=== PATIENT | female | born 1975 | race African-American/Black ===

== ENCOUNTER 2016-10-05 07:21 | Day surgery (SDC) | payer BC ==
[~2016-10-05] VITALS: Ht 165.1 cm; Wt 81.7 kg
[2016-10-05] VITALS (18 sets, daily range): BP systolic 95–124; BP diastolic 53–73; PULSE 58–84; RESP 16–18; Ht 165.1 cm; Wt 81.7 kg
[~2016-10-05 07:21] MED LIST: CEFAZOLIN 1 GM/50 ML (PMX) 50 ML IVPB SCH; CEPH-443 PO; LIDOCAINE 1% (MDV) 20 ML INJ ONE; SOD CHLORIDE 0.9% 1,000 ML IV SCH
[2016-10-05 09:21] LABS: ADD SCAN DIFF NO
[2016-10-05 09:23] LABS: BASOPHILS % 0.4 % (0.0-2.0); EOSINOPHILS % 0.8 % (0.0-7.0); HEMATOCRIT 35.8 % (37.0-47.0); HEMOGLOBIN 12.1 g/dl (12.0-16.0); LYMPHOCYTES # 2.1 10^3/ul (0.8-2.9); LYMPHOCYTES % 41.1 % (15.0-51.0); MEAN CORPUSCULAR HEMOGLOBIN 29.4 pg (29.0-33.0); MEAN CORPUSCULAR HGB CONC 33.8 g/dl (32.0-37.0); MEAN CORPUSCULAR VOLUME 86.9 fl (82.0-101.0); MEAN PLATELET VOLUME 9.5 fl (7.4-10.4); MONOCYTE # 0.5 10^3/ul (0.3-0.9); MONOCYTES % 9.6 % (0.0-11.0); NEUTROPHIL # 2.4 10^3/ul (1.6-7.5); NEUTROPHILS % 47.9 % (39.0-77.0); PLATELET COUNT 194 10^3/UL (140-415); RED BLOOD COUNT 4.12 10^6/ul (4.20-5.40)
[2016-10-05] MEDS ORDERED: PROPOFOL 100 ML ONE (09:29)
[2016-10-05] MEDS ORDERED: ROPIVACAINE 0.2% 20 ML VIAL ONE (09:29)
[2016-10-05] MEDS ORDERED: ROCURONIUM 50 MG INJ ONE (09:29)
[2016-10-05 09:36] LABS: ALBUMIN 4.6 g/dl (3.3-4.9); ALBUMIN/GLOBULIN RATIO 1.15; BILIRUBIN,INDIRECT 0.2 mg/dl (0-1.1); BILIRUBIN,TOTAL 0.2 mg/dl (0.2-1.3); TOTAL PROTEIN 8.6 g/dl (6.1-8.1)
[2016-10-05 09:37] LABS: CALCIUM 8.6 mg/dl (8.4-10.2); CREATININE 0.68 mg/dl (0.44-1.00); INR 1.12; POTASSIUM 3.9 mmol/L (3.5-5.1); PROTIME 14.4 Sec (12.2-14.2); PT RATIO 1.1
[2016-10-05 09:38] LABS: PARTIAL THROMBOPLASTIN TIME 32.6 Sec (25.0-35.0)
[2016-10-05] MEDS ORDERED: MIDAZOLAM 1 MG/ML 2 ML INJ ONE (09:42)
[2016-10-05] MEDS ORDERED: FENTAnyl 50 MCG/ML VIAL ONE (09:43)
[2016-10-05] MEDS ORDERED: FAMOTIDINE 20 MG INJ ONE (09:59)
[2016-10-05] MEDS ORDERED: ONDANSETRON 4 MG INJ ONE (09:59)
[2016-10-05] MEDS ORDERED: DEXAMETHASONE 4 MG/ML 1 ML INJ ONE (09:59)
[2016-10-05] MEDS ORDERED: CEFAZOLIN 1 GM INJ ONE (10:08)
[2016-10-05] MEDS ORDERED: EPHEDrine SULFATE 50 MG/5 ML SYG ONE (10:27)
[2016-10-05] MEDS ORDERED: PHENYLephrine (100 MCG/ML) 5ML SYG ONE (10:29)
[2016-10-05] MEDS ORDERED: GLYCOPYRROLATE 0.4 MG INJ ONE (10:50)
[2016-10-05] MEDS ORDERED: NEOSTIGMINE 3 MG/3 ML SYRINGE ONE (10:50)
[2016-10-05] MEDS ORDERED: PROCHLORPERAZINE 10 MG INJ IV PRN (11:00)
[2016-10-05] MEDS ORDERED: ONDANSETRON 4 MG INJ IV PRN ×2 (11:00→11:30)
[2016-10-05] MEDS ORDERED: MEPERIDINE 25 MG INJ IV PRN (11:00)
[2016-10-05] MEDS ORDERED: DIPHENHYDRAMINE 50 MG INJ IV PRN (11:00)
[2016-10-05] MEDS ORDERED: HYDROmorphONE (0.2 MG/ML) 10ML SYG IV PRN (11:00)
[2016-10-05] MEDS ORDERED: LORAZEPAM 2 MG INJ IV PRN (11:00)
[2016-10-05] MEDS ORDERED: BUPIVACAINE 0.5%/EPI (SDV) 30 ML INJ INJ ONE (11:20)
[2016-10-05] MEDS ORDERED: ACETAMINOPHEN 1000MG/100ML IV 100 ML IVPB PRN (11:30)
[2016-10-05] MEDS: HYDROmorphONE (0.2 MG/ML) 10ML SYG IV PRN ×2 (11:35→11:45)
--- NOTE | 2016-10-05 12:44 | OPR ---
DATE OF OPERATION: 10/05/2016 PREOPERATIVE DIAGNOSIS: Symptomatic cholelithiasis. POSTOPERATIVE DIAGNOSES: 1. Symptomatic cholelithiasis. 2. Ventral hernia. 3. Chronic cholecystitis. OPERATIONS PERFORMED: 1. Cholecystectomy. 2. Ventral herniorrhaphy. ANESTHESIA: General. ANESTHESIOLOGIST: Dr. Rodriguez SURGEON: Michael Corey MD STATEMENT CLERK: Kadeem Adler MD INDICATIONS FOR PROCEDURE: The patient is a 41-year-old female who presented with multiple previous episodes of right upper quadrant pain, had ultrasound-confirmed cholelithiasis. She was counseled as to the risks versus benefits of cholecystectomy, and she consented and was scheduled for surgery. DESCRIPTION OF PROCEDURE: The patient was brought to the operating theater, placed under general en dotracheal tube anesthesia. The abdomen was prepped and draped in the usual sterile fashion. A 2 c m incision was made in the midline just above the umbilicus. Subcutaneous tissue was dissected with cautery. In the subcutaneous space, a hernia sac was encountered. This was just superior to the u mbilicus. The sac was gently reduced, and the midline fascia was opened for a distance of 2 cm. Th e Levi trocar was then placed in the standard fashion. The abdomen was insufflated to a pressure of approximately 14 mmHg with carbon dioxide. The laparoscope was introduced and attention was dire cted to the right upper quadrant where the distended gallbladder with dense omental adhesions was id entified, consistent with probable chronic cholecystitis. Three accessory ports were then placed un carmen direct vision in a standard fashion. Through the most lateral port site, the gallbladder was gr asped at its fundus and retracted cephalad. With a combination of cautery and blunt dissection, the adhesions were taken down. This allowed visualization of the neck of the gallbladder. A second gr asper was placed on the neck of the gallbladder, and the gallbladder was then retracted both cephala d and lateral. Peritoneum overlying the gallbladder was incised with cautery, both medially and lat erally to facilitate mobilization of the triangle of Calot. With meticulous dissection, the cystic duct was isolated. Two clips were placed across it distally and it was then transected with the end ovascular JAQUELINE stapler at its junction with the neck of the gallbladder. Subsequently, the cystic ar luana was isolated. It was triply clipped and then transected with the endovascular JAQUELINE stapler. Th e gallbladder was then dissected out of the gallbladder fossa using cautery. Prior to final transec tion, irrigation and inspection took place. Minimal bleeding was controlled with cautery. The gall bladder was transected. The laparoscope was moved to the 12-mm subcostal port site, and the gallbla dder was retrieved from the abdomen through the umbilical port site using the gallbladder retrieval bag without difficulty. Levi trocar was placed back in the abdomen. The abdomen was reinsufflate d. The laparoscope was placed back into the umbilical port. Final irrigation and inspection took p lace. There was no evidence of bleeding. The 3 accessory ports were removed under direct vision. Again, there was no evidence of bleeding. Finally, the supraumbilical port was removed. Dr. Corey then inspected the hernia defect. There appeared to be a satellite component of the hernia extendin g into the umbilicus; thus, the midline fascia was opened additional 1 cm inferiorly to fully reduce the remaining satellite hernia. The sac was transected and removed for permanent pathologic analys is. The midline fascia was then repaired in primary fashion with 0 Prolene sutures, #1 looped PDS s uture in running fashion. All wounds were then irrigated with Betadine and skin incisions were reap proximated with skin sedrick. The patient tolerated the procedure well. Estimated blood loss was 2 0 mL. There were no complications, and the patient was transported in stable condition to the [facility] room. Dictated By: MICHAEL BELTRAN/JOSE Conf#: [id number] DID#: [id number]
[2016-10-05] MEDS: D5W-0.45 NACL + KCL 20 MEQ 1,000 ML IV SCH ×3 (15:00→23:40)
[2016-10-05] MEDS: morphine 2 MG INJ IV PRN ×2 (17:55→22:09)
--- NOTE | 2016-10-05 18:16 | HP ---
DATE OF ADMISSION: 10/05/2016 CHIEF COMPLAINT/HISTORY OF PRESENT ILLNESS: Patient is a 41-year-old female with no significant pas t medical history except for symptomatic gallstone. The patient was seen by Dr. Corey as an outpati ent and underwent ultrasound of the abdomen as an outpatient. The patient was diagnosed with gallst one with no sonographic evidence of cholecystitis. The patient was brought in to hospital today and underwent laparoscopic cholecystectomy. The patient was brought in the hospital today and underwen t cholecystectomy and ventral herniorrhaphy. The patient did have significant postoperative pain. The patient is being admitted for further evaluation and management. The patient prior to surgery h as not had any recent acute cholecystitis. No reported fever or chills. No reported chest pain, sh ortness of breath. No reported leg edema. No reported weakness. No history of diabetes, hypertens ion or coronary artery disease. REVIEW OF SYSTEMS: Other than postoperative pain the rest of review of systems unremarkable. PAST MEDICAL HISTORY: As stated above. ALLERGIES: BACTRIM. SOCIAL HISTORY: No smoking, no alcohol. FAMILY HISTORY: Noncontributory. PHYSICAL EXAMINATION: GENERAL: The patient is conscious, awake, alert. VITAL SIGNS: Temperature 97.5, pulse 62, respirations 18, blood pressure 108/69, O2 saturation 99% on 2 liters nasal cannula. HEENT: Conjunctivae and lids normal. Oropharynx clear. NECK: Supple. No mass, no thyromegaly. CHEST: Fairly clear. CARDIOVASCULAR: No murmur. ABDOMEN: The patient is status post recent surgery. EXTREMITIES: No edema. Pedal pulses palpable. SKIN: Without rash. NEUROLOGIC: The patient is awake, alert, fairly oriented with no gross focal deficit. LABORATORY DATA: WBC 5, hemoglobin 12.1, platelets 194. Chemistry is unremarkable with normal live r enzymes. Coagulation profile revealed PT of 14.4, INR 1.1. Urine test was negative. IMPRESSION: 1. Symptomatic gallstones and chronic cholecystitis as per operative report. 2. Ventral hernia status post repair and status post cholecystectomy. PLAN: Patient admitted on medical floor. Patient will be kept n.p.o. and will be given IV fluid, I V Tylenol, IV morphine, and will use Zofran for nausea, vomiting and sequential compression devices for deep venous thrombosis prophylaxis. We will continue to follow her from a medical standpoint. Dictated By: SHANTELLE SALOMON/JOSE Conf#: [id number] DID#: [id number]
[2016-10-05] MEDS: ACETAMINOPHEN/CODEINE #3 TAB PO PRN (23:49)
[2016-10-06] MEDS: morphine 2 MG INJ IV PRN ×2 (06:08→13:34)
[2016-10-06 07:53] VITALS: BP 116/67; RESP 18
[2016-10-06] MEDS: D5W-0.45 NACL + KCL 20 MEQ 1,000 ML IV SCH (08:04)
[2016-10-06] MEDS: ACETAMINOPHEN/CODEINE #3 TAB PO PRN ×2 (09:18→17:36)
[2016-10-06] MEDS ORDERED: HYDR-906 PO (18:20)
--- NOTE | 2016-10-06 18:29 | PN ---
DATE: 10/06/2016 SUBJECTIVE: Status post laparoscopic cholecystectomy ____ postop. No complaint. Has tolerated her diet, has been walking around, no nausea, no vomiting. OBJECTIVE: GENERAL: Alert, awake, oriented, is having her dinner. VITAL SIGNS: Temperature 98.5, heart rate 81, 18 respirations, 116/67 blood pressure, saturation 10 0% on room air. HEENT: No blood tests done today. ABDOMEN: Soft. EXTREMITIES: Legs no calf tenderness. ASSESSMENT: The patient is a 41-year-old female status post laparoscopic cholecystectomy. Postop d ay #1. PLAN: 1. Stable, can be discharged home to be followed by Dr. Corey in the office. Patient was explained the care that she should take at home and then patient is going to be discharged today. Dictated By: HEATHER RAINEY/JOSE Conf#: [id number] DID#: [id number]
== END 2016-10-06 18:50 | disposition home or self-care (01) ==
LOC: SDS 07:21 → MS2 13:11 → SDS 10-06 18:50
PROVIDERS: ATTEND Surgery Surgical Oncology
DX: K81.1 Chronic cholecystitis (principal); K43.9 Ventral hernia without obstruction or gangrene
CPT/HCPCS: 47562; 80053; 84703; 85025; 85610; 85730; 88302; 88304; J0690; J1100; J1170; J1200; J2175; J2250; J2270; J2370; J2405; J2710; J2795; J3010; J3480; Z7512; Z7610; J7030

== ENCOUNTER 2017-09-29 00:03 | Emergency (ER) | END 2017-09-29 05:53 | disposition home or self-care (01) ==

== ENCOUNTER 2017-09-30 11:53 | Emergency (ER) | END 2017-09-30 17:54 | disposition home or self-care (01) ==